=== PATIENT | female | born 1965 | race Caucasian/White ===

== ENCOUNTER 2017-06-22 13:39 | Emergency (ER) | END 2017-06-22 18:20 | disposition left against medical advice (07) | DX: Z53.21 Procedure and treatment not carried out due to patient leaving prior to being seen by health care provider (principal) ==

== ENCOUNTER 2019-07-16 20:59 | Emergency (ER) | payer OTHER ==
[~2019-07-16] VITALS: Ht 160 cm; Wt 95.1 kg
[~2019-07-16 20:59] MED LIST: AMOX1TAB10 PO; IBUP-1542 PO
[2019-07-16 21:10] VITALS: BP 120/59; PULSE 79; RESP 18; Ht 160 cm; Wt 95.1 kg
[2019-07-16] MEDS ORDERED: IBUPROFEN 600 MG TAB PO ONE (23:00)
[2019-07-16] MEDS ORDERED: AMOXICILLIN/CLAV 875 MG TAB PO ONE (23:00)
== END 2019-07-17 01:48 | disposition home or self-care (01) ==
LOC: FTE 20:59
DX: L03.211 Cellulitis of face (principal); H02.846 Edema of left eye, unspecified eyelid
CPT/HCPCS: 70480; 81025; Z7502; Z7610